=== PATIENT | female | born 1940 | race Caucasian/White ===

== ENCOUNTER 2016-07-07 19:29 | Emergency (ER) | payer OTHER ==
[~2016-07-07] VITALS: Ht 172.7 cm; Wt 67.6 kg
[2016-07-07] MEDS ORDERED: MELATONIN10 M1 PO (19:37)
[2016-07-07 20:47] VITALS: BP 132/68
== END 2016-07-07 20:47 | disposition home or self-care (01) ==
LOC: ER 19:29
DX: S61.210A Laceration without foreign body of right index finger without damage to nail, initial encounter (principal); W45.8XXA Other foreign body or object entering through skin, initial encounter; Y93.89 Activity, other specified; Y92.89 Other specified places as the place of occurrence of the external cause; Y99.8 Other external cause status

== ENCOUNTER 2016-07-18 20:13 | Emergency (ER) | payer OTHER ==
[~2016-07-18] VITALS: Ht 172.7 cm; Wt 68.0 kg
[~2016-07-18 20:13] MED LIST: MELATONIN10 M1 PO
[2016-07-18 21:03] VITALS: BP 131/70
== END 2016-07-18 21:05 | disposition home or self-care (01) ==
LOC: ER 20:13
DX: S61.210D Laceration without foreign body of right index finger without damage to nail, subsequent encounter (principal); X58.XXXD Exposure to other specified factors, subsequent encounter; Y92.89 Other specified places as the place of occurrence of the external cause; Y99.8 Other external cause status